=== PATIENT | male | born 1955 | race Caucasian/White ===

== ENCOUNTER 2020-01-04 05:19 | Inpatient (IN) | payer OTHER ==
[~2020-01-04] VITALS: Ht 152.4 cm; Wt 65.1 kg
[2020-01-04 06:15] LABS: HEMATOCRIT. 39.5 % (42.0-52.0); HEMOGLOBIN. 13.3 g/dL (14.0-18.0); MEAN CORPUSCULAR HEMOGLOBIN 30.2 pg (28.0-32.0); MEAN CORPUSCULAR VOLUME 89.6 fL (80.0-94.0); MEAN PLATELET VOLUME 9.8 fl (7.4-10.4); PLATELET 259 x1000/uL (130-400); RED BLOOD CELL COUNT 4.41 mill/uL (4.7-6.1); RED CELL DISTRIBUTION WIDTH 13.3 % (11.6-14.6)
[2020-01-04] MEDS ORDERED: KETOROLAC 30MG/ML VIAL IV STA (06:17)
[2020-01-04 06:22] LABS: CHLORIDE 104 mEq/L (98-107)
[2020-01-04 06:29] LABS: BG CARBOXYHEMOGLOBIN 0.1 % (0.5-1.5); BG DEOXYHEMOGLOBIN 3.9 % (0.0-5.0); BG HCO3 ACT 21.9 mmol/L (22.0-26.0); BG METHEMOGLOBIN 0.2 % (0.0-1.5); BG OXYGEN SATURATION 96.1 % (92.0-98.5); BG OXYHEMOGLOBIN 95.8 % (94.0-97.0); BG PCO2 28.5 mmHg (35.0-45.0); BG PH 7.504 (7.350-7.450); BG PO2 82.9 mmHg (75.0-100.0); BG SAMPLE SITE RIGHT RADIAL; BG TOTAL HEMOGLOBIN 13.8 g/dL (12.0-18.0)
[2020-01-04 06:58] LABS: CREATINE KINASE 1153 IU/L (39-308)
[2020-01-04 07:14] LABS: PLATELET ESTIMATE NORMAL
[2020-01-04 08:06] LABS: D-DIMER 20.66 mg/L FEU (<0.50)
[2020-01-04] MEDS ORDERED: VANCOMYCIN 1 G PREMIX 200 ML IV ONE (08:15)
[2020-01-04] MEDS ORDERED: PIPERACILLIN/TAZ 3.375G PREMIX 50 ML IV ONE (08:15)
[2020-01-04] MEDS ORDERED: ENOXAPARIN 60MG/0.6ML SYR SUBCUT ONE (08:45)
[2020-01-04] MEDS ORDERED: CLINDAMYCIN 600 MG in DEXTROSE 5% WATER 50 ML IV ONE (11:30)
[2020-01-04 11:50] VITALS: BP_SYST 133; BP_SYST 139; BP_DIAS 69
[2020-01-04] MEDS ORDERED: ONDANSETRON HCL 4MG/2ML INJ IV PRN (12:30)
[2020-01-04] MEDS ORDERED: MAGNESIUM/ALUMINUM HYDROXIDE/SIMETHICONE 30ML UDC PO PRN (12:30)
[2020-01-04] MEDS ORDERED: PIPERACILLIN/TAZ 3.375G PREMIX 50 ML IV SCH (12:30)
[2020-01-04] MEDS ORDERED: GUAIFENESIN 200MG/10ML SUGAR FREE UDC PO PRN (12:30)
[2020-01-04] MEDS ORDERED: CLONIDINE 0.1MG TABLET PO PRN (12:30)
[2020-01-04] MEDS ORDERED: DOCUSATE SODIUM 100MG CAPSULE PO PRN (12:30)
[2020-01-04] MEDS: ENOXAPARIN 40MG/0.4ML SYR SUBCUT SCH (13:10)
[2020-01-04 16:00] VITALS: BP 129/77
[2020-01-04] MEDS ORDERED: PIPERACILLIN/TAZOBACTAM 3.375 G in DEXT 5% WATER 100 ML IV SCH (16:00)
[2020-01-04] MEDS ORDERED: CEFTRIAXONE 1 G PREMIX 50 ML IV SCH (16:30)
[2020-01-04] MEDS: CEFTRIAXONE 1,000 MG in DEXTROSE 5% WATER 50 ML IV SCH (16:30)
[2020-01-04] MEDS: DEXAMETHASONE 4MG TABLET PO SCH (16:47)
[2020-01-04] MEDS: ACETAMINOPHEN 325MG TABLET PO PRN (16:53)
[2020-01-04] MEDS: AZITHROMYCIN 500 MG in DEXT 5% WATER 250 ML IV SCH (17:19)
[2020-01-04 20:00] VITALS: BP 111/75
[2020-01-05] VITALS (10 sets, daily range): BP systolic 111–135; BP diastolic 63–80
[2020-01-05 07:36] LABS: HEMATOCRIT. 40.2 % (42.0-52.0); HEMOGLOBIN. 13.6 g/dL (14.0-18.0); MEAN CORPUSCULAR HEMOGLOBIN 30.2 pg (28.0-32.0); MEAN CORPUSCULAR VOLUME 89.5 fL (80.0-94.0); MEAN PLATELET VOLUME 9.2 fl (7.4-10.4); PLATELET 232 x1000/uL (130-400); RED BLOOD CELL COUNT 4.49 mill/uL (4.7-6.1); RED CELL DISTRIBUTION WIDTH 13.2 % (11.6-14.6)
[2020-01-05 07:56] LABS: CHLORIDE 108 mEq/L (98-107)
[2020-01-05] MEDS: ENOXAPARIN 40MG/0.4ML SYR SUBCUT SCH (08:48)
[2020-01-05] MEDS: DEXAMETHASONE 4MG TABLET PO SCH (08:48)
[2020-01-05] MEDS ORDERED: POTASSIUM CHLORIDE 20MEQ TABLET SR PO NR (09:45)
[2020-01-05 10:07] LABS: BG BASE EXCESS -0.4 mmol/L (-2.0-2.0); BG CARBOXYHEMOGLOBIN 0.5 % (0.5-1.5); BG DEOXYHEMOGLOBIN 5.5 % (0.0-5.0); BG FRACTION INSPIRED OXYGEN 99.9; BG HCO3 ACT 22.8 mmol/L (22.0-26.0); BG METHEMOGLOBIN 0.3 % (0.0-1.5); BG OXYGEN SATURATION 94.5 % (92.0-98.5); BG OXYHEMOGLOBIN 93.7 % (94.0-97.0); BG PCO2 33.4 mmHg (35.0-45.0); BG PH 7.453 (7.350-7.450); BG PO2 75.4 mmHg (75.0-100.0); BG SAMPLE SITE RIGHT RADIAL; BG TOTAL HEMOGLOBIN 14.1 g/dL (12.0-18.0); BG VENT MODE MASK - NRB
[2020-01-05 13:46] LABS: PLATELET ESTIMATE NORMAL
[2020-01-05 14:19] LABS: HEPATITIS B SURFACE ANTIGEN NEGATIVE
[2020-01-05 14:48] LABS: HEPATITIS A AB IGM NEGATIVE (NEGATIVE)
[2020-01-05] MEDS: CEFTRIAXONE 1,000 MG in DEXTROSE 5% WATER 50 ML IV SCH (15:50)
[2020-01-05] MEDS: AZITHROMYCIN 500 MG in DEXT 5% WATER 250 ML IV SCH (17:51)
[2020-01-06] VITALS: BP 132/68
[2020-01-06 04:00] VITALS: BP 122/69
[2020-01-06 08:00] VITALS: BP 128/83
[2020-01-06] MEDS: ENOXAPARIN 40MG/0.4ML SYR SUBCUT SCH (08:34)
[2020-01-06] MEDS: DEXAMETHASONE 4MG TABLET PO SCH (08:35)
[2020-01-06 12:00] VITALS: BP 115/63
[2020-01-06] MEDS: CEFTRIAXONE 1,000 MG in DEXTROSE 5% WATER 50 ML IV SCH (15:48)
[2020-01-06 16:00] VITALS: BP 121/73
[2020-01-06] MEDS: AZITHROMYCIN 500 MG in DEXT 5% WATER 250 ML IV SCH (16:50)
[2020-01-06 20:00] VITALS: BP 116/61
[2020-01-07] VITALS (66 sets, daily range): BP systolic 89–168; BP diastolic 50–99
[2020-01-07] MEDS: ENOXAPARIN 40MG/0.4ML SYR SUBCUT SCH (08:49)
[2020-01-07] MEDS ORDERED: PROPOFOL 10MG/ML 100ML 100 ML IV PRN (09:45)
[2020-01-07 10:17] LABS: CHLORIDE 110 mEq/L (98-107)
[2020-01-07] MEDS: NOREPINEPHRINE 8 MG in DEXT 5% WATER 242 ML IV PRN (10:23)
[2020-01-07] MEDS: MIDAZOLAM HCL 100 MG in DEXT 5% WATER 80 ML IV PRN ×2 (10:27→16:47)
[2020-01-07] MEDS: FENTANYL CITRATE/PF 1,000 MCG in SODIUM CHLORIDE 0.9% 80 ML IV PRN ×2 (10:29→13:02)
[2020-01-07 11:12] LABS: BG BASE EXCESS -1.4 mmol/L (-2.0-2.0); BG CARBOXYHEMOGLOBIN 0.3 % (0.5-1.5); BG DEOXYHEMOGLOBIN 1.8 % (0.0-5.0); BG FRACTION INSPIRED OXYGEN 100; BG HCO3 ACT 24.7 mmol/L (22.0-26.0); BG METHEMOGLOBIN 0.5 % (0.0-1.5); BG OXYGEN SATURATION 98.2 % (92.0-98.5); BG OXYHEMOGLOBIN 97.4 % (94.0-97.0); BG PCO2 46.9 mmHg (35.0-45.0); BG PO2 147.7 mmHg (75.0-100.0); BG SAMPLE SITE RIGHT RADIAL; BG TOTAL HEMOGLOBIN 14.5 g/dL (12.0-18.0); BG VENT MODE VENT - AC
[2020-01-07] MEDS ORDERED: SODIUM CHLORIDE 0.9% IV PRN (13:55)
[2020-01-07] MEDS ORDERED: FENTANYL CITRATE IV PRN (13:55)
[2020-01-07] MEDS: CEFTRIAXONE 1,000 MG in DEXTROSE 5% WATER 50 ML IV SCH (15:24)
[2020-01-07] MEDS: DEXAMETHASONE 4MG TABLET PO SCH (15:24)
[2020-01-07] MEDS: ACETAMINOPHEN 325MG TABLET PO PRN (15:24)
[2020-01-07] MEDS: AZITHROMYCIN 500 MG in DEXT 5% WATER 250 ML IV SCH (17:01)
[2020-01-07] MEDS ORDERED: IPRATROPIUM/ALBUTEROL 0.5-3(2.5)MG/3ML NEB HHN PRN (18:30)
[2020-01-07] MEDS: FENTANYL CITRATE/PF 2,500 MCG in SODIUM CHLORIDE 0.9% 200 ML IV PRN (20:14)
[2020-01-08] VITALS (86 sets, daily range): BP systolic 82–142; BP diastolic 48–79
[2020-01-08] MEDS: IPRATROPIUM/ALBUTEROL 0.5-3(2.5)MG/3ML NEB HHN SCH ×4 (00:35→21:08)
[2020-01-08] MEDS: MIDAZOLAM HCL 100 MG in DEXT 5% WATER 80 ML IV PRN ×2 (04:19→15:24)
[2020-01-08] MEDS: FENTANYL CITRATE/PF 2,500 MCG in SODIUM CHLORIDE 0.9% 200 ML IV PRN ×2 (06:59→17:56)
[2020-01-08 08:56] LABS: BG BASE EXCESS 0.9 mmol/L (-2.0-2.0); BG FRACTION INSPIRED OXYGEN 80; BG HCO3 ACT 27.6 mmol/L (22.0-26.0); BG PCO2 51.7 mmHg (35.0-45.0); BG PH 7.345 (7.350-7.450); BG PO2 151.5 mmHg (75.0-100.0); BG SAMPLE SITE RIGHT RADIAL; BG VENT MODE VENT - AC
[2020-01-08] MEDS: DEXAMETHASONE 4MG TABLET PO SCH (09:43)
[2020-01-08] MEDS: ENOXAPARIN 40MG/0.4ML SYR SUBCUT SCH (10:06)
[2020-01-08] MEDS: PANTOPRAZOLE SODIUM 40 MG/VIAL IV SCH (12:38)
[2020-01-08] MEDS: CEFTRIAXONE 1,000 MG in DEXTROSE 5% WATER 50 ML IV SCH (15:26)
[2020-01-08] MEDS: AZITHROMYCIN 500 MG in DEXT 5% WATER 250 ML IV SCH (17:56)
[2020-01-09] VITALS (92 sets, daily range): BP systolic 96–142; BP diastolic 56–82
[2020-01-09] MEDS: IPRATROPIUM/ALBUTEROL 0.5-3(2.5)MG/3ML NEB HHN SCH ×4 (01:22→21:25)
[2020-01-09] MEDS: MIDAZOLAM HCL 100 MG in DEXT 5% WATER 80 ML IV PRN ×2 (02:05→23:45)
[2020-01-09 05:56] LABS: HEMATOCRIT. 34.8 % (42.0-52.0); HEMOGLOBIN. 11.8 g/dL (14.0-18.0); MEAN CORPUSCULAR HEMOGLOBIN 30.9 pg (28.0-32.0); MEAN CORPUSCULAR VOLUME 91.4 fL (80.0-94.0); MEAN PLATELET VOLUME 9.5 fl (7.4-10.4); PLATELET 151 x1000/uL (130-400); RED BLOOD CELL COUNT 3.81 mill/uL (4.7-6.1); RED CELL DISTRIBUTION WIDTH 12.9 % (11.6-14.6)
[2020-01-09 06:50] LABS: CHLORIDE 110 mEq/L (98-107)
[2020-01-09] MEDS: ENOXAPARIN 40MG/0.4ML SYR SUBCUT SCH (08:08)
[2020-01-09] MEDS: PANTOPRAZOLE SODIUM 40 MG/VIAL IV SCH (08:08)
[2020-01-09] MEDS: DEXAMETHASONE 4MG TABLET PO SCH (08:08)
[2020-01-09] MEDS: FENTANYL CITRATE/PF 2,500 MCG in SODIUM CHLORIDE 0.9% 200 ML IV PRN ×2 (08:08→22:34)
[2020-01-09 09:27] LABS: BG BASE EXCESS 1.8 mmol/L (-2.0-2.0); BG CARBOXYHEMOGLOBIN 0.2 % (0.5-1.5); BG DEOXYHEMOGLOBIN 2.3 % (0.0-5.0); BG FRACTION INSPIRED OXYGEN 70; BG HCO3 ACT 27.3 mmol/L (22.0-26.0); BG METHEMOGLOBIN 0.4 % (0.0-1.5); BG OXYGEN SATURATION 97.7 % (92.0-98.5); BG OXYHEMOGLOBIN 97.1 % (94.0-97.0); BG PCO2 46.6 mmHg (35.0-45.0); BG PH 7.386 (7.350-7.450); BG PO2 101.3 mmHg (75.0-100.0); BG SAMPLE SITE RIGHT RADIAL; BG TOTAL HEMOGLOBIN 12.4 g/dL (12.0-18.0); BG VENT MODE VENT - AC
[2020-01-09 11:03] LABS: PLATELET ESTIMATE NORMAL
[2020-01-09] MEDS: ACETAMINOPHEN 325MG TABLET PO PRN (20:15)
[2020-01-09] MEDS: NOREPINEPHRINE 8 MG in DEXT 5% WATER 242 ML IV PRN (23:50)
[2020-01-10] VITALS (96 sets, daily range): BP systolic 87–130; BP diastolic 44–81
[2020-01-10] MEDS: IPRATROPIUM/ALBUTEROL 0.5-3(2.5)MG/3ML NEB HHN SCH ×4 (00:51→21:00)
[2020-01-10 05:55] LABS: HEMATOCRIT. 34.7 % (42.0-52.0); HEMOGLOBIN. 11.5 g/dL (14.0-18.0); MEAN CORPUSCULAR HEMOGLOBIN 30.7 pg (28.0-32.0); MEAN CORPUSCULAR VOLUME 92.1 fL (80.0-94.0); MEAN PLATELET VOLUME 9.4 fl (7.4-10.4); PLATELET 183 x1000/uL (130-400); RED BLOOD CELL COUNT 3.76 mill/uL (4.7-6.1); RED CELL DISTRIBUTION WIDTH 13.1 % (11.6-14.6)
[2020-01-10 05:57] LABS: CHLORIDE 111 mEq/L (98-107)
[2020-01-10] MEDS: MIDAZOLAM HCL 100 MG in DEXT 5% WATER 80 ML IV PRN ×3 (07:02→21:32)
[2020-01-10 08:53] LABS: BG BASE EXCESS 1.7 mmol/L (-2.0-2.0); BG CARBOXYHEMOGLOBIN 0.3 % (0.5-1.5); BG DEOXYHEMOGLOBIN 5.7 % (0.0-5.0); BG FRACTION INSPIRED OXYGEN 70; BG HCO3 ACT 26.6 mmol/L (22.0-26.0); BG METHEMOGLOBIN 0.3 % (0.0-1.5); BG OXYGEN SATURATION 94.3 % (92.0-98.5); BG OXYHEMOGLOBIN 93.7 % (94.0-97.0); BG PCO2 43.1 mmHg (35.0-45.0); BG PH 7.409 (7.350-7.450); BG PO2 73.4 mmHg (75.0-100.0); BG SAMPLE SITE RIGHT RADIAL; BG TOTAL HEMOGLOBIN 12.6 g/dL (12.0-18.0); BG VENT MODE VENT - AC
[2020-01-10] MEDS: DEXAMETHASONE 4MG TABLET PO SCH (09:37)
[2020-01-10] MEDS: FENTANYL CITRATE/PF 2,500 MCG in SODIUM CHLORIDE 0.9% 200 ML IV PRN ×2 (09:37→17:44)
[2020-01-10] MEDS: ENOXAPARIN 40MG/0.4ML SYR SUBCUT SCH (09:38)
[2020-01-10] MEDS: PANTOPRAZOLE SODIUM 40 MG/VIAL IV SCH (09:40)
[2020-01-10 11:39] LABS: PLATELET ESTIMATE NORMAL
[2020-01-10] MEDS: DOCUSATE SODIUM SUGAR FREE 100MG/10ML UDC NG PRN (13:56)
[2020-01-10] MEDS: ACETAMINOPHEN 650MG/20.3ML UDC NG PRN ×2 (13:56→20:03)
[2020-01-10] MEDS: PROPOFOL 10MG/ML 100ML 100 ML IV PRN ×2 (15:14→19:07)
[2020-01-11] VITALS (95 sets, daily range): BP systolic 74–115; BP diastolic 41–63
[2020-01-11] MEDS: IPRATROPIUM/ALBUTEROL 0.5-3(2.5)MG/3ML NEB HHN SCH ×4 (00:36→20:13)
[2020-01-11] MEDS: PROPOFOL 10MG/ML 100ML 100 ML IV PRN ×2 (01:16→08:42)
[2020-01-11] MEDS: FENTANYL CITRATE/PF 2,500 MCG in SODIUM CHLORIDE 0.9% 200 ML IV PRN ×3 (01:38→17:53)
[2020-01-11 05:15] LABS: CHLORIDE 111 mEq/L (98-107)
[2020-01-11] MEDS: MIDAZOLAM HCL 100 MG in DEXT 5% WATER 80 ML IV PRN ×3 (05:16→20:25)
[2020-01-11 07:34] LABS: BG BASE EXCESS 2.2 mmol/L (-2.0-2.0); BG CARBOXYHEMOGLOBIN 0.3 % (0.5-1.5); BG DEOXYHEMOGLOBIN 1.4 % (0.0-5.0); BG HCO3 ACT 30.7 mmol/L (22.0-26.0); BG METHEMOGLOBIN 0.2 % (0.0-1.5); BG OXYGEN SATURATION 98.6 % (92.0-98.5); BG OXYHEMOGLOBIN 98.1 % (94.0-97.0); BG PCO2 69.1 mmHg (35.0-45.0); BG PH 7.265 (7.350-7.450); BG SAMPLE SITE LEFT RADIAL; BG TOTAL HEMOGLOBIN 11.3 g/dL (12.0-18.0); BG TOTAL RESPIRATORY RATE 18 b/min; BG VENT MODE VENT - AC
[2020-01-11] MEDS: DEXAMETHASONE 4MG TABLET PO SCH (08:45)
[2020-01-11] MEDS: DOCUSATE SODIUM SUGAR FREE 100MG/10ML UDC NG PRN (08:45)
[2020-01-11] MEDS: PANTOPRAZOLE SODIUM 40 MG/VIAL IV SCH (08:45)
[2020-01-11] MEDS: ENOXAPARIN 40MG/0.4ML SYR SUBCUT SCH (08:46)
[2020-01-11] MEDS: METOCLOPRAMIDE HCL 10MG/2ML VIAL IV SCH ×3 (12:46→23:15)
[2020-01-12] VITALS (94 sets, daily range): BP systolic 91–231; BP diastolic 43–90
[2020-01-12] MEDS: IPRATROPIUM/ALBUTEROL 0.5-3(2.5)MG/3ML NEB HHN SCH ×5 (00:42→20:07)
[2020-01-12] MEDS: FENTANYL CITRATE/PF 2,500 MCG in SODIUM CHLORIDE 0.9% 200 ML IV PRN ×3 (01:20→17:53)
[2020-01-12] MEDS: MIDAZOLAM HCL 100 MG in DEXT 5% WATER 80 ML IV PRN ×3 (04:16→19:42)
[2020-01-12 05:45] LABS: PROTHROMBIN TIME 10.3 sec (9.6-11.0)
[2020-01-12 05:49] LABS: CHLORIDE 111 mEq/L (98-107)
[2020-01-12] MEDS: METOCLOPRAMIDE HCL 10MG/2ML VIAL IV SCH ×4 (06:54→23:37)
[2020-01-12] MEDS: DEXAMETHASONE 4MG TABLET PO SCH (08:25)
[2020-01-12] MEDS: ENOXAPARIN 40MG/0.4ML SYR SUBCUT SCH (08:25)
[2020-01-12] MEDS: PANTOPRAZOLE SODIUM 40 MG/VIAL IV SCH (08:25)
[2020-01-12 09:10] LABS: BG BASE EXCESS 3.8 mmol/L (-2.0-2.0); BG CARBOXYHEMOGLOBIN 0.3 % (0.5-1.5); BG DEOXYHEMOGLOBIN 6.3 % (0.0-5.0); BG FRACTION INSPIRED OXYGEN 50; BG HCO3 ACT 28.5 mmol/L (22.0-26.0); BG METHEMOGLOBIN 0.2 % (0.0-1.5); BG OXYGEN SATURATION 93.7 % (92.0-98.5); BG OXYHEMOGLOBIN 93.2 % (94.0-97.0); BG PCO2 43.5 mmHg (35.0-45.0); BG PH 7.434 (7.350-7.450); BG PO2 65.6 mmHg (75.0-100.0); BG SAMPLE SITE RIGHT RADIAL; BG VENT MODE VENT - AC
[2020-01-12] MEDS: ACETAMINOPHEN 650MG/20.3ML UDC NG PRN ×2 (11:49→22:50)
[2020-01-12] MEDS ORDERED: REMDESIVIR 200 MG in SODIUM CHLORIDE 0.9% 250 ML IV NR (18:00)
[2020-01-13] VITALS (100 sets, daily range): BP systolic 82–196; BP diastolic 37–94
[2020-01-13] MEDS: FENTANYL CITRATE/PF 2,500 MCG in SODIUM CHLORIDE 0.9% 200 ML IV PRN ×3 (01:57→18:18)
[2020-01-13] MEDS: IPRATROPIUM/ALBUTEROL 0.5-3(2.5)MG/3ML NEB HHN SCH (06:00)
[2020-01-13] MEDS: METOCLOPRAMIDE HCL 10MG/2ML VIAL IV SCH ×4 (06:05→23:10)
[2020-01-13 06:21] LABS: CHLORIDE 113 mEq/L (98-107)
[2020-01-13] MEDS: ACETAMINOPHEN 650MG/20.3ML UDC NG PRN ×2 (08:20→18:29)
[2020-01-13] MEDS: PANTOPRAZOLE SODIUM 40 MG/VIAL IV SCH (08:20)
[2020-01-13] MEDS: DEXAMETHASONE 4MG TABLET PO SCH (08:20)
[2020-01-13] MEDS: ENOXAPARIN 40MG/0.4ML SYR SUBCUT SCH (08:21)
[2020-01-13 08:44] LABS: BG BASE EXCESS 0.1 mmol/L (-2.0-2.0); BG CARBOXYHEMOGLOBIN 0.3 % (0.5-1.5); BG DEOXYHEMOGLOBIN 19.2 % (0.0-5.0); BG HCO3 ACT 25.8 mmol/L (22.0-26.0); BG METHEMOGLOBIN 0.3 % (0.0-1.5); BG OXYGEN SATURATION 80.7 % (92.0-98.5); BG OXYHEMOGLOBIN 80.2 % (94.0-97.0); BG PCO2 46.2 mmHg (35.0-45.0); BG PH 7.365 (7.350-7.450); BG PO2 48.3 mmHg (75.0-100.0); BG SAMPLE SITE ALINE; BG TOTAL HEMOGLOBIN 12.1 g/dL (12.0-18.0); BG VENT MODE VENT - AC
[2020-01-13] MEDS ORDERED: NA PHOS,M-B/NA PHOS,DI-BA ENEMA 118ML PR ONE (09:30)
[2020-01-13] MEDS ORDERED: SODIUM CHLORIDE 0.9% 500 ML IV ONE (09:30)
[2020-01-13] MEDS ORDERED: LACTULOSE 20G/30ML UDC PO SCH (09:30)
[2020-01-13 11:44] LABS: CLARITY URINE CLOUDY (CLEAR); COLOR URINE DARK YELLOW (YELLOW); KETONES URINE NEGATIVE (NEGATIVE); LEUKOCYTE ESTERASE URINE TRACE (NEGATIVE); NITRITE URINE POSITIVE (NEGATIVE); OCCULT BLOOD URINE 2+ (NEGATIVE); PROTEIN URINE 1+ (NEGATIVE); SPECIFIC GRAVITY URINE 1.026 (1.005-1.030)
[2020-01-13] MEDS: IPRATROPIUM BROMIDE (0.02%) 0.5MG/2.5ML NEB HHN SCH ×2 (12:30→21:12)
[2020-01-13] MEDS: MIDAZOLAM HCL 100 MG in DEXT 5% WATER 80 ML IV PRN ×2 (13:09→20:51)
[2020-01-13] MEDS: REMDESIVIR 100 MG in SODIUM CHLORIDE 0.9% 250 ML IV SCH (13:49)
[2020-01-13] MEDS: PROPOFOL 10MG/ML 100ML 100 ML IV PRN ×2 (16:55→23:11)
[2020-01-13] MEDS: CEFEPIME 2,000 MG in DEXT 5% WATER 100 ML IV SCH (18:18)
[2020-01-14] VITALS (100 sets, daily range): BP systolic 72–180; BP diastolic 34–77
[2020-01-14] MEDS: ACETAMINOPHEN 650MG/20.3ML UDC NG PRN ×3 (00:26→18:32)
[2020-01-14] MEDS: IPRATROPIUM BROMIDE (0.02%) 0.5MG/2.5ML NEB HHN SCH ×4 (00:41→20:37)
[2020-01-14] MEDS: FENTANYL CITRATE/PF 2,500 MCG in SODIUM CHLORIDE 0.9% 200 ML IV PRN ×3 (01:44→15:04)
[2020-01-14] MEDS: MIDAZOLAM HCL 100 MG in DEXT 5% WATER 80 ML IV PRN ×3 (03:31→18:10)
[2020-01-14 05:14] LABS: CHLORIDE 115 mEq/L (98-107)
[2020-01-14] MEDS: CEFEPIME 2,000 MG in DEXT 5% WATER 100 ML IV SCH ×2 (05:40→18:07)
[2020-01-14] MEDS: METOCLOPRAMIDE HCL 10MG/2ML VIAL IV SCH ×4 (05:40→23:16)
[2020-01-14] MEDS: NOREPINEPHRINE 8 MG in DEXT 5% WATER 242 ML IV PRN ×5 (06:07→18:10)
[2020-01-14] MEDS: DEXAMETHASONE 4MG TABLET PO SCH (08:44)
[2020-01-14] MEDS: PANTOPRAZOLE SODIUM 40 MG/VIAL IV SCH (08:44)
[2020-01-14] MEDS: ENOXAPARIN 40MG/0.4ML SYR SUBCUT SCH (08:45)
[2020-01-14] MEDS: DOCUSATE SODIUM SUGAR FREE 100MG/10ML UDC NG PRN (08:45)
[2020-01-14] MEDS: PROPOFOL 10MG/ML 100ML 100 ML IV PRN ×3 (08:47→19:45)
[2020-01-14 09:09] LABS: BG BASE EXCESS -8.4 mmol/L (-2.0-2.0); BG CARBOXYHEMOGLOBIN 0.3 % (0.5-1.5); BG DEOXYHEMOGLOBIN 12.6 % (0.0-5.0); BG FRACTION INSPIRED OXYGEN 60; BG HCO3 ACT 23.3 mmol/L (22.0-26.0); BG METHEMOGLOBIN 0.3 % (0.0-1.5); BG OXYGEN SATURATION 87.3 % (92.0-98.5); BG OXYHEMOGLOBIN 86.8 % (94.0-97.0); BG PCO2 84.1 mmHg (35.0-45.0); BG PO2 67.5 mmHg (75.0-100.0); BG TOTAL HEMOGLOBIN 12.5 g/dL (12.0-18.0); BG VENT MODE VENT - AC
[2020-01-14] MEDS ORDERED: SODIUM CHLORIDE 0.9% 1,000 ML IV SCH (09:15)
[2020-01-14] MEDS ORDERED: SODIUM BICARBONATE 8.4% 1 MEQ/ML 50ML SYR IV NR ×2 (11:45→12:15)
[2020-01-14] MEDS: REMDESIVIR 100 MG in SODIUM CHLORIDE 0.9% 250 ML IV SCH (13:21)
[2020-01-14] MEDS: NOREPINEPHRINE 32 MG in DEXT 5% WATER 218 ML IV PRN (22:44)
[2020-01-15] VITALS (96 sets, daily range): BP systolic 4–182; BP diastolic 0–87
[2020-01-15] MEDS: ACETAMINOPHEN 650MG/20.3ML UDC NG PRN ×3 (01:13→23:00)
[2020-01-15] MEDS: FENTANYL CITRATE/PF 2,500 MCG in SODIUM CHLORIDE 0.9% 200 ML IV PRN ×3 (01:35→17:07)
[2020-01-15] MEDS: MIDAZOLAM HCL 100 MG in DEXT 5% WATER 80 ML IV PRN ×3 (01:52→17:07)
[2020-01-15] MEDS: IPRATROPIUM BROMIDE (0.02%) 0.5MG/2.5ML NEB HHN SCH ×4 (02:02→21:15)
[2020-01-15 05:18] LABS: CHLORIDE 109 mEq/L (98-107)
[2020-01-15] MEDS: PROPOFOL 10MG/ML 100ML 100 ML IV PRN (05:43)
[2020-01-15] MEDS: CEFEPIME 2,000 MG in DEXT 5% WATER 100 ML IV SCH (05:44)
[2020-01-15] MEDS: METOCLOPRAMIDE HCL 10MG/2ML VIAL IV SCH ×4 (05:44→23:00)
[2020-01-15 08:09] LABS: BG CARBOXYHEMOGLOBIN 0.3 % (0.5-1.5); BG DEOXYHEMOGLOBIN 4.8 % (0.0-5.0); BG HCO3 ACT 20.9 mmol/L (22.0-26.0); BG METHEMOGLOBIN 0.7 % (0.0-1.5); BG OXYHEMOGLOBIN 94.2 % (94.0-97.0); BG PCO2 56.7 mmHg (35.0-45.0); BG PH 7.185 (7.350-7.450); BG PO2 86.5 mmHg (75.0-100.0); BG SAMPLE SITE ALINE; BG TOTAL HEMOGLOBIN 10.2 g/dL (12.0-18.0); BG TOTAL RESPIRATORY RATE 30 b/min; BG VENT MODE VENT - AC
[2020-01-15] MEDS ORDERED: SODIUM BICARBONATE 8.4% 1 MEQ/ML 50ML SYR IV SCH (10:00)
[2020-01-15] MEDS: DOCUSATE SODIUM SUGAR FREE 100MG/10ML UDC NG PRN (10:36)
[2020-01-15] MEDS: DEXAMETHASONE 4MG TABLET PO SCH (10:36)
[2020-01-15] MEDS: PANTOPRAZOLE SODIUM 40 MG/VIAL IV SCH (10:36)
[2020-01-15] MEDS: ENOXAPARIN 40MG/0.4ML SYR SUBCUT SCH (10:38)
[2020-01-15] MEDS ORDERED: SODIUM POLYSTYRENE SULFONATE 15 G/60 ML BOT NG SCH (11:00)
[2020-01-15 12:32] LABS: CREATINE KINASE 169 IU/L (39-308)
[2020-01-15] MEDS ORDERED: ENOXAPARIN 30MG/0.3ML SYR SUBCUT SCH (14:44)
[2020-01-15] MEDS: REMDESIVIR 100 MG in SODIUM CHLORIDE 0.9% 250 ML IV SCH (15:09)
[2020-01-15] MEDS: CEFEPIME 1,000 MG in DEXTROSE 5% WATER 50 ML IV SCH (17:16)
[2020-01-15] MEDS ORDERED: SODIUM POLYSTYRENE SULFONATE 15 G/60 ML BOT NG NR (17:30)
[2020-01-16] VITALS (98 sets, daily range): BP systolic 55–155; BP diastolic 28–96
[2020-01-16] MEDS: IPRATROPIUM BROMIDE (0.02%) 0.5MG/2.5ML NEB HHN SCH ×3 (00:02→20:59)
[2020-01-16] MEDS: FENTANYL CITRATE/PF 2,500 MCG in SODIUM CHLORIDE 0.9% 200 ML IV PRN ×4 (00:15→22:32)
[2020-01-16] MEDS: MIDAZOLAM HCL 100 MG in DEXT 5% WATER 80 ML IV PRN ×3 (03:20→21:29)
[2020-01-16 05:11] LABS: INR 1.1; PROTHROMBIN TIME 11.8 sec (9.6-11.0)
[2020-01-16 05:14] LABS: CHLORIDE 107 mEq/L (98-107)
[2020-01-16] MEDS: METOCLOPRAMIDE HCL 10MG/2ML VIAL IV SCH ×4 (05:45→18:46)
[2020-01-16] MEDS: CEFEPIME 1,000 MG in DEXTROSE 5% WATER 50 ML IV SCH ×3 (05:50→18:45)
[2020-01-16] MEDS ORDERED: SODIUM BICARBONATE 8.4% 1 MEQ/ML 50ML SYR IV SCH (07:00)
[2020-01-16] MEDS ORDERED: INSULIN REGULAR (HUMULIN R) 300UNITS/3ML IV SCH (07:00)
[2020-01-16 07:28] LABS: BG BASE EXCESS -8.2 mmol/L (-2.0-2.0); BG DEOXYHEMOGLOBIN 2.8 % (0.0-5.0); BG HCO3 ACT 19.7 mmol/L (22.0-26.0); BG METHEMOGLOBIN 0.5 % (0.0-1.5); BG OXYGEN SATURATION 97.2 % (92.0-98.5); BG OXYHEMOGLOBIN 96.7 % (94.0-97.0); BG PCO2 50.7 mmHg (35.0-45.0); BG PH 7.208 (7.350-7.450); BG PO2 106.1 mmHg (75.0-100.0); BG SAMPLE SITE ALINE; BG TOTAL HEMOGLOBIN 12.4 g/dL (12.0-18.0); BG VENT MODE VENT - AC
[2020-01-16] MEDS ORDERED: ENOXAPARIN 30MG/0.3ML SYR SUBCUT SCH (09:00)
[2020-01-16] MEDS ORDERED: CALCIUM CHLORIDE 1,000 MG in DEXT 5% WATER 90 ML IV SCH (09:00)
[2020-01-16] MEDS: DEXAMETHASONE 4MG TABLET PO SCH (09:00)
[2020-01-16] MEDS: PANTOPRAZOLE SODIUM 40 MG/VIAL IV SCH ×2 (09:00→11:52)
[2020-01-16] MEDS ORDERED: HEPARIN 1000 UNITS/ML 10ML ONE (10:27)
[2020-01-16] MEDS ORDERED: LIDOCAINE HCL 1% 20ML VIAL (Pyxis) INJ ONE (10:28)
[2020-01-16] MEDS ORDERED: ADENOSINE 3 MG/ML 2ML VIAL IV SCH ×2 (13:15→14:15)
[2020-01-16] MEDS: PHENYLEPHRINE 50 MG in DEXT 5% WATER 245 ML IV PRN ×2 (13:40→21:28)
[2020-01-16] MEDS: REMDESIVIR 100 MG in SODIUM CHLORIDE 0.9% 250 ML IV SCH (14:00)
[2020-01-16] MEDS ORDERED: DIGOXIN 500MCG/2ML AMP IV NR ×2 (14:30→20:00)
[2020-01-16 17:17] LABS: BG BASE EXCESS -7.5 mmol/L (-2.0-2.0); BG CARBOXYHEMOGLOBIN 0.3 % (0.5-1.5); BG DEOXYHEMOGLOBIN 4.9 % (0.0-5.0); BG HCO3 ACT 20.9 mmol/L (22.0-26.0); BG METHEMOGLOBIN 0.3 % (0.0-1.5); BG OXYGEN SATURATION 95.1 % (92.0-98.5); BG OXYHEMOGLOBIN 94.5 % (94.0-97.0); BG PCO2 55.2 mmHg (35.0-45.0); BG PH 7.196 (7.350-7.450); BG PO2 85.7 mmHg (75.0-100.0); BG SAMPLE SITE ALINE; BG TOTAL HEMOGLOBIN 12.1 g/dL (12.0-18.0); BG VENT MODE VENT - AC
[2020-01-16] MEDS ORDERED: SODIUM BICARBONATE 8.4% 1 MEQ/ML 50ML SYR IV NR (17:30)
[2020-01-16] MEDS: METRONIDAZOLE 500 MG PREMIX 100 ML IV SCH (18:00)
[2020-01-16] MEDS: NOREPINEPHRINE 32 MG in DEXT 5% WATER 218 ML IV PRN (20:07)
[2020-01-16] MEDS: VASOPRESSIN 20 UNIT in SODIUM CHLORIDE 0.9% 99 ML IV PRN (21:46)
[2020-01-16] MEDS ORDERED: ALBUMIN HUMAN 12.5GM/50ML (25%) IV NR (22:15)
[2020-01-16] MEDS: EPINEPHRINE 10 MG in SODIUM CHLORIDE 0.9% 240 ML IV PRN (22:39)
[2020-01-16] MEDS ORDERED: EPINEPHRINE 0.1MG/ML (1:10,000) 10ML SYR ONE (23:00)
[2020-01-17] VITALS (29 sets, daily range): BP systolic 57–102; BP diastolic 34–54
[2020-01-17] MEDS: PHENYLEPHRINE 50 MG in DEXT 5% WATER 245 ML IV PRN ×2 (01:28→05:40)
[2020-01-17] MEDS ORDERED: ACETAMINOPHEN 650MG SUPP PR PRN (01:30)
[2020-01-17] MEDS: METOCLOPRAMIDE HCL 10MG/2ML VIAL IV SCH ×2 (01:42→05:12)
[2020-01-17] MEDS: EPINEPHRINE 10 MG in SODIUM CHLORIDE 0.9% 240 ML IV PRN ×2 (02:00→04:49)
[2020-01-17] MEDS: IPRATROPIUM BROMIDE (0.02%) 0.5MG/2.5ML NEB HHN SCH (02:05)
[2020-01-17] MEDS: NOREPINEPHRINE 32 MG in DEXT 5% WATER 218 ML IV PRN (03:14)
[2020-01-17] MEDS: VASOPRESSIN 20 UNIT in SODIUM CHLORIDE 0.9% 99 ML IV PRN (03:14)
[2020-01-17] MEDS: METRONIDAZOLE 500 MG PREMIX 100 ML IV SCH (05:41)
[2020-01-17 05:45] LABS: CHLORIDE 97 mEq/L (98-107); HEMATOCRIT. 31.5 % (42.0-52.0); HEMOGLOBIN. 9.6 g/dL (14.0-18.0); MEAN CORPUSCULAR HEMOGLOBIN 30.4 pg (28.0-32.0); MEAN CORPUSCULAR VOLUME 99.6 fL (80.0-94.0); MEAN PLATELET VOLUME 11.2 fl (7.4-10.4); PLATELET 99 x1000/uL (130-400); RED BLOOD CELL COUNT 3.16 mill/uL (4.7-6.1)
[2020-01-17] MEDS ORDERED: CEFEPIME 500 MG in DEXTROSE 5% WATER 50 ML IV SCH (06:00)
[2020-01-17] MEDS ORDERED: INSULIN REGULAR (HUMULIN R) UD 100 UNITS/ML SYR IV STA (06:49)
[2020-01-17] MEDS ORDERED: SODIUM POLYSTYRENE SULFONATE 15 G/60 ML BOT PR STA (06:49)
[2020-01-17] MEDS ORDERED: SODIUM BICARBONATE 8.4% 1 MEQ/ML 50ML SYR IV STA (06:49)
[2020-01-17] MEDS ORDERED: CALCIUM GLUCONATE 1,000 MG in DEXT 5% WATER 90 ML IV STA (06:49)
[2020-01-17] MEDS ORDERED: DEXTROSE 50% WATER 50ML SYRINGE IV STA (06:49)
[2020-01-17] MEDS ORDERED: SODIUM BICARBONATE 8.4% 1 MEQ/ML 50ML SYR IV ONE (07:00)
[2020-01-17] MEDS ORDERED: CALCIUM CHLORIDE 1GM/10ML SYR IV ONE (07:00)
[2020-01-17] MEDS ORDERED: SODIUM BICARBONATE 150 MEQ in SODIUM CHLORIDE 0.45% 1,000 ML IV SCH (07:00)
[2020-01-17 08:07] LABS: NUCLEATED RED BLOOD CELLS 8 /100 WBC
[2020-01-17 08:08] LABS: PLATELET ESTIMATE SLIGHTLY DECREASED
[2020-01-18 17:10] LABS: ANTI-NUCLEAR ANTIBODIES DIRECT Negative (Negative)
[2020-01-19 13:11] LABS: ANTI-MYELOPEROXIDASE AB < 9.0 U/mL (0.0-9.0); ANTI-PROTEINASE 3 ABS < 3.5 U/mL (0.0-3.5); ATYPICAL P-ANCA <1:20 titer (Neg:<1:20); CYTOPLASMIC C-ANCA <1:20 titer (Neg:<1:20); PERINUCLEAR P-ANCA <1:20 titer (Neg:<1:20)
== END 2020-01-17 07:33 | disposition expired | DRG 871 ==
LOC: ER 05:19 → 7WST 10:11 → EDBEDREQTM 10:12 → EDBEDREQ 10:12 → ENRESERV 10:41 → MICUSO 01-07 09:39
PROVIDERS: ADMIT Hospitalist; ATTEND Hospitalist
PROC: XW033E5 Introduction of Remdesivir Anti-infective into Peripheral Vein, Percutaneous Approach, New Technology Group 5 (ICD-10-PCS; 2020-01-04)
PROC: XW13325 Transfusion of Convalescent Plasma (Nonautologous) into Peripheral Vein, Percutaneous Approach, New Technology Group 5 (ICD-10-PCS; 2020-01-05)
PROC: 02HV33Z Insertion of Infusion Device into Superior Vena Cava, Percutaneous Approach (ICD-10-PCS; principal; 2020-01-16)
PROC: B548ZZA Ultrasonography of Superior Vena Cava, Guidance (ICD-10-PCS; 2020-01-16)
DX: A41.89 Other specified sepsis (principal); U07.1 COVID-19; J96.01 Acute respiratory failure with hypoxia; J12.89 Other viral pneumonia; R65.21 Severe sepsis with septic shock; E44.0 Moderate protein-calorie malnutrition; N17.9 Acute kidney failure, unspecified; R65.20 Severe sepsis without septic shock; B97.89 Other viral agents as the cause of diseases classified elsewhere; D72.810 Lymphocytopenia; R74.01 Elevation of levels of liver transaminase levels; T38.0X5A Adverse effect of glucocorticoids and synthetic analogues, initial encounter; E78.1 Pure hyperglyceridemia; E80.6 Other disorders of bilirubin metabolism; E87.5 Hyperkalemia; R73.9 Hyperglycemia, unspecified; D64.9 Anemia, unspecified; Z78.1 Physical restraint status; Z68.28 Body mass index [BMI] 28.0-28.9, adult; Z79.899 Other long term (current) drug therapy
CPT/HCPCS: 36415; 36600; 71045; 74018; 74176; 76937; 80048; 80053; 81003; 82375; 82550; 82570; 82728; 82805; 82962; 83520; 83605; 83615; 83880; 84132; 84300; 84478; 84484; 85025; 85379; 85384; 86038; 86140; 86160; 86256; 86705; 86709; 86803; 86850; 86900; 86927; 87070; 87077; 87186; 87340; 87635; 92950; 93005; 93970; 94002; 94003; 94640; 99291; C1725; C1752; C1769; C9113; J0153; J0456; J0692; J0696; J1160; J1644; J1650; J1885; J2250; J2370; J2543; J2704; J2765; J3010; J3370; J3490; J7050; J7060; J8540; L8514; P9017; P9047; Q9957